=== PATIENT | male | born 1970 ===

== ENCOUNTER 2016-04-13 17:53 | Emergency (ER) | payer SELFPAY ==
[~2016-04-13] VITALS: Ht 167.6 cm; Wt 94.0 kg
[2016-04-13 18:12] VITALS: Ht 167.6 cm; Wt 94.0 kg
== END 2016-04-13 20:11 | disposition left against medical advice (07) ==
LOC: FTE 17:53
DX: Z53.21 Procedure and treatment not carried out due to patient leaving prior to being seen by health care provider (principal)